=== PATIENT | female | born 1960 | race Caucasian/White ===

== ENCOUNTER → 2017-11-11 | Outpatient (CLI) | payer OTHER ==
--- NOTE | 2017-11-11 17:12 | RADIOLOGY IMAGING REPORT ---
FACILITY: [facility] PATIENT NAME: KEENAN ARNOLD : [id number] MR: [id number] V: [id number] EXAM DATE: ORDERING PHYSICIAN: RUPERTO CARO TECHNOLOGIST: Domi Mora PROCEDURE:BILATERAL DIGITAL SCREENING MAMMOGRAM WITH CAD ASSISTED INTERPRETATION & 3D TOMOSYNTHESIS COMPARISON:Prior mammograms 06/20/15, 02/22/14, 02/03/13, 07/06/11. INDICATIONS:SCREENING FINDINGS: A small amount of fibroglandular tissue is seen throughout the breasts. The parenchymal pattern has remained stable allowing for difference in mammographic technique & patient positioning. There is no evidence of malignant appearing mass, malignant appearing calcifications or other secondary sign of malignancy in either breast. DIAGNOSTIC CATEGORY 1--NEGATIVE. RECOMMENDATIONS: ROUTINE MAMMOGRAM AND CLINICAL EVALUATION. IMPRESSION: BIRADS 1: Negative. No significant abnormality is seen. Dictated by: Vashti Singletary M.D. on 11/11/2017 at 15:34 Transcribed by: ARTI on 11/11/2017 at 15:44 Approved by: Vashti Singletary M.D. on 11/11/2017 at 17:11 [facility]
== END ==
LOC: MAMO 02:33
PROVIDERS: ATTEND Nurse Practitioner Family
DX: Z12.31 Encounter for screening mammogram for malignant neoplasm of breast (principal)
CPT/HCPCS: 77063; 77067

== ENCOUNTER → 2019-01-28 | Outpatient (CLI) | payer OTHER ==
--- NOTE | 2019-01-28 10:06 | RADIOLOGY IMAGING REPORT ---
[place] [facility] [place] NAME: Meg Jack : 1960 MR: [id number] V: [id number] EXAM DATE: ORDERING PHYSICIAN: RUPERTO CARO TECHNOLOGIST: Location: [facility] Patient: Meg Jack : 1960 Visit/Account:[id number] Date of Sevice: 01/28/2019 EXAMINATION: Abdominal ultrasound complete: 01/28/2019 8:00 AM HISTORY: Right lower quadrant pain. COMPARISON STUDIES: none. FINDINGS: Gallbladder: no stones or sludge. Liver: Minimally echogenic compared to the adjacent kidney consistent with slight fatty infiltration. No cirrhotic features. No focal finding. Common duct: 4 mm Pancreas: negative Spleen: negative Kidneys: negative Upper abdominal aorta and IVC: negative Ascites: none IMPRESSION: Liver is minimally echogenic consistent with fatty infiltration. Otherwise unremarkable study. Report Dictated By: Surya Duke MD at 01/28/2019 9:55 AM Report E-Signed By: Surya Duke MD at 01/28/2019 9:57 AM WSN:[email or web address]
== END ==
LOC: US 00:40
PROVIDERS: ATTEND Nurse Practitioner Family
DX: K76.0 Fatty (change of) liver, not elsewhere classified (principal)
CPT/HCPCS: 76700